=== PATIENT | male | born 2000 | race Two or more races ===

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

== ENCOUNTER 2019-01-15 13:57 | Emergency (ER) | payer SELFPAY ==
--- NOTE | 2019-01-15 14:09 | ER Report ---
History and Physical Time Seen By MD: 14:09 Hx. of Stated Complaint: past few months pt has been getting nosebleeds, this am after blowing nose blood clots came out. cough/congestion/headache HPI/ROS CHIEF COMPLAINT: Frequent bloody noses HISTORY OF PRESENT ILLNESS: 18-year-old male patient presents to emergency room with complaint of frequent bloody noses. Patient states that he has had several bloody noses over last 4 months. Patient states that over the last 2-3 days he's had 3-4 bloody noses a day. Patient states he's had cough, sinus congestion, hea daches over the last week. He denies any fevers, chills, nausea, vomiting or diarrhea. Patient states that he has seen his primary care provider as well as urgent care for his bloody noses and was told both places that that is normal. He states that he has not had any trauma to the nose. Allergies: Coded Allergies: No Known Drug Allergies (Unverified , 12/25/18) Home Meds Active Scripts Amoxicillin/Pot Clav 875-125 Mg Tab (AUGMENTIN 875-125 TABLET) 1 Each Tablet, 1 TAB PO Q12H, #20 TAB Prov:SHYLA WHITTEN ENGINEERING INSPECTION ASSISTANT 01/15/19 Past Medical/Surgical History Patient has no pertinent medical or surgical history. Reviewed Nurses Notes: Yes Constitutional Vital Sign - Last 24 Hours 01/15/19 01/15/19 14:04 14:32 Temp 97.9 Pulse 61 73 Resp 16 B/P (MAP) 107/73 100/73 (82) Pulse Ox 95 92 O2 Delivery Room Air Physical Exam General Appearance: The patient is alert, has no immediate need for airway protection and no current signs of toxicity. Eyes: Pupils equal and round no injection. ENT: Tympanic membranes are pearly-hester, auditory canals are patent, mucous membranes are moist. Patient does have mucous membranes that are erythematous and swollen in bilateral nares. Respiratory: Chest is non tender, lungs are clear to auscultation. Cardiac: regular rate and rhythm Gastrointestinal: Abdomen is soft and non tender, no masses, bowel sounds normal. Musculoskeletal: Neck: Neck is supple and non tender. Extremities have full range of motion and are non tender. Skin: No rashes or lesions. DIFFERENTIAL DIAGNOSIS: After history and physical exam differential diagnosis was considered for sinusitis, dry mucous membranes, allergies. Medical Decision Making ED Course/Re-evaluation ED Course Patient was admitted to an exam room, history and physical were obtained. Differential diagnoses were considered. I examination lungs are clear, heart is regular, abdomen soft nontender. Patient does have erythematous mixed membranes bilateral nares. With the symptoms going on for the past week and believe that we are looking at a sinus infection. Patient is also complaining some eye ir ritation. Conjunctivae clear, there is no injection. I will go ahead and place him on antibiotics for sinus infection as well as have him use eyedrops 3 times a day for the next week. He is to follow-up with his eye doctor if there is any persisting eye irritation. I would like him follow-up with his primary care provider next 1-2 weeks. Patient verbalized understanding and agreement with plan. Decision to Disposition Date: Jan 15, 2019 Decision to Disposition Time: 14:23 Depart Departure Latest Vital Signs Vital Signs Date Time Temp Pulse Resp B/P (MAP) Pulse Ox O2 Delivery O2 Flow Rate FiO2 01/15/19 14:32 73 100/73 (82) 92 01/15/19 14:04 97.9 16 Room Air Impression: Primary Impression: Sinusitis Condition: Improved Disposition: HOME OR SELF-CARE Referrals: ALEJANDRA LANGFORD APRN (PCP) New Scripts Amoxicillin/Pot Clav 875-125 Mg Tab (AUGMENTIN 875-125 TABLET) 1 Each Tablet 1 TAB PO Q12H, #20 TAB Prov: MARIA DOLORESKATEEliceo CARMEN 01/15/19 Patient Instructions: Sinusitis (ED) Additional Instructions: Increase fluid intake. Get plenty of rest. Follow up with your primary care provider. Try [place] Water, a saline solution that you can get over the counter at the pharmacy. Take the medication as prescribed. Use Eye drops for your eyes 3 times a day for the next month and see if that helps with the eye irritation. If that doesn't seem to help follow up with your eye doctor. Problem Qualifiers Primary Impression: Sinusitis Sinusitis location: pansinusitis Chronicity: acute Recurrence: non- recurrent Qualified Codes: J01.40 - Acute pansinusitis, unspecified SHYLA WHITTEN KERMIT Jan 15, 2019 14:09
[2019-01-15] MEDS ORDERED: AMOX-559 PO (14:21)
[2019-01-15 14:32] VITALS: BP 100/73
== END 2019-01-15 14:32 | disposition home or self-care (01) ==
LOC: ER 14:11
DX: J01.40 Acute pansinusitis, unspecified (principal)
CPT/HCPCS: 99281

== ENCOUNTER 2019-01-18 11:57 | Emergency (ER) | payer SELFPAY ==
[~2019-01-18 11:57] MED LIST: AMOX-559 PO
[2019-01-18 12:01] VITALS: BP 118/76
--- NOTE | 2019-01-18 12:14 | ER Report ---
History and Physical Time Seen By MD: 12:13 Hx. of Stated Complaint: PATIENT HAVING ON AND OFF NOSEBLEEDS. BLEEDING CONTROLLED AT THIS TIME. WAS TOLD HE HAS AN INFECTION AND GIVEN ANTIBIOTICS BUT THEY HAVE ONLY MADE PAIN WORSE HPI/ROS CHIEF COMPLAINT: Nosebleed HISTORY OF PRESENT ILLNESS: She [id number] male who was recently diagnosed with sinusitis and started on Augmentin on 01/15/2019. States that he's been having intermittent nosebleeds and so was having sinus pressure since starting the antibiotic. For this reason he presents to the emergency department for further evaluation. Patient is currently not having any nose bleeding. Allergies: Coded Allergies: No Known Drug Allergies (Unverified , 12/25/18) Home Meds Active Scripts Pseudoephedrine Hcl (SUDAFED 12 HOUR) 120 Mg Tablet.er, 120 MG PO Q12H for 10 Days, #20 TAB 0 Refills Prov:BENY YUEN MD 01/18/19 Amoxicillin/Pot Clav 875-125 Mg Tab (AUGMENTIN 875-125 TABLET) 1 Each Tablet, 1 TAB PO Q12H, #20 TAB Prov:SHYLA WHITTEN 01/15/19 Past Medical/Surgical History Noncontributory towards this chief complaint Hx Alcohol Use: No Constitutional Vital Sign - Last 24 Hours 01/18/19 12:01 Temp 98.7 Pulse 85 Resp 16 B/P (MAP) 118/76 Pulse Ox 92 O2 Delivery Room Air Physical Exam General Appearance: Alert, no distress. Eyes: Pupils equal and round no pallor or injection. ENT, Mouth: Ears: Tympanic membranes are normal. Nose: No bleeding. Mouth: Mucous membranes are moist. Throat: No erythema or exudates there is no tonsillar hypertrophy and uvula is midline. Musculoskeletal: Neck is supple non tender, no adenopathy. Skin: Warm and dry, no rashes. Medical Decision Making ED Course/Re-evaluation ED Course No active bleeding; suspected nosebleeds are secondary to sinusitis. We'll prescribe additional medications to include Sudafed and Afrin nasal spray and have the patient continue his antibiotics Decision to Disposition Date: Jan 18, 2019 Decision to Disposition Time: 12:23 Depart Departure Latest Vital Signs Vital Signs Date Time Temp Pulse Resp B/P (MAP) Pulse Ox O2 Delivery O2 Flow Rate FiO2 01/18/19 12:01 98.7 85 16 118/76 92 Room Air Impression: Primary Impression: Epistaxis Condition: Improved Disposition: HOME OR SELF-CARE Referrals: ALEJANDRA LANGFORD APRN (PCP) New Scripts Pseudoephedrine Hcl (SUDAFED 12 HOUR) 120 Mg Tablet.er 120 MG PO Q12H for 10 Days, #20 TAB 0 Refills Prov: BENY YUEN MD 01/18/19 Departure Forms: ER Transition Record, Medications Reconciliation, Off Work/School Form, School or Work Release?: Work Number of days to be released: 1 Patient Portal Information Patient Instructions: Nosebleed (GEN) BENY YUEN MD Jan 18, 2019 12:14
[2019-01-18] MEDS ORDERED: PSEU120T69 PO (12:24)
[2019-01-18] MEDS ORDERED: OXYMETAZOLINE SPRAY 15 ML BTL ENA SCH (12:25)
== END 2019-01-18 12:34 | disposition home or self-care (01) ==
LOC: ER 12:07
DX: R04.0 Epistaxis (principal)
CPT/HCPCS: 99282